=== PATIENT | male | born 1970 ===

== ENCOUNTER → 2024-09-07 14:36 | Outpatient (REF) | payer OTHER, SELFPAY | LOC: RAD 14:36 | PROVIDERS: ATTENDING PHYSICIAN Physician Assistant Medical | DX: M25.561 Pain in right knee (principal); M79.671 Pain in right foot; M79.672 Pain in left foot | CPT/HCPCS: 73564; 73630 ==

== ENCOUNTER → 2024-09-16 15:40 | Outpatient (REF) | payer OTHER, SELFPAY ==
[2024-09-16 16:49] LABS: Body Fluid WBC 5939 /CUMM
[2024-09-16 17:10] LABS: Body Fluid Second Tech FB
== END ==
LOC: REG 15:40
PROVIDERS: ATTENDING PHYSICIAN Physician Assistant Surgical; FAMILY PHYSICIAN Family Medicine
DX: M25.461 Effusion, right knee (principal); M25.561 Pain in right knee
CPT/HCPCS: 87015; 87070; 87075; 87205; 89051; 89060